=== PATIENT | male | born 1960 | race Caucasian/White ===

== ENCOUNTER 2017-12-13 17:30 | Emergency (ER) | payer OTHER ==
[~2017-12-13] VITALS: Wt 68.0 kg
[~2017-12-13 17:30] MED LIST: AUGMENTIN 875 M1 TAB PO; KEFLEX500 MG PO; MEDROL DOSEPAK4 MG PO; PERCOCET 325 MG1 TA2 PO; PREDNISONE10 MG PO; Percocet 325 MG1 TAB PO; VICODIN 5/500 505 MG PO
[2017-12-13 17:33] VITALS: BP 108/73
[2017-12-13] MEDS ORDERED: CEFADROXIL500 M1 PO (18:15)
[2017-12-13] MEDS ORDERED: PERCOCET 5-3251 EACH PO (18:15)
== END 2017-12-13 19:16 | disposition home or self-care (01) ==
LOC: ED 17:30
DX: S62.633B Displaced fracture of distal phalanx of left middle finger, initial encounter for open fracture (principal); Z88.1 Allergy status to other antibiotic agents; W23.0XXA Caught, crushed, jammed, or pinched between moving objects, initial encounter; Y93.89 Activity, other specified; Y92.89 Other specified places as the place of occurrence of the external cause; Y99.8 Other external cause status

== ENCOUNTER → 2018-01-21 | Outpatient (CLI) | payer OTHER ==
[~2018-01-21] MED LIST changes: +CEFADROXIL500 M1 PO; +PERCOCET 5-3251 EACH PO
== END | disposition home or self-care (01) ==
LOC: ORTHO 03:28 → RAD 08:00 → ORTHO 16:51
DX: Z47.89 Encounter for other orthopedic aftercare (principal); S62.633D Displaced fracture of distal phalanx of left middle finger, subsequent encounter for fracture with routine healing; M79.89 Other specified soft tissue disorders; X58.XXXD Exposure to other specified factors, subsequent encounter

== ENCOUNTER 2022-06-21 17:44 | Inpatient (IN) | payer OTHER ==
[~2022-06-21] VITALS: Ht 172.7 cm; Wt 63.1 kg
[2022-06-21 17:48] VITALS: BP 151/87
[2022-06-21 18:20] LABS: HEMATOCRIT 38.2 % (42.0-52.0); MEAN CORPUSCULAR HGB 29.1 pg (27.0-31.0); MEAN CORPUSCULAR HGB CONC 32.7 g/dl (33.0-37.0); MEAN PLATELET VOLUME 10.5 fl (9.6-12.3); PLATELET COUNT AUTOMATED 316 10*3/uL (130-400); RED BLOOD COUNT 4.29 10*6/uL (4.50-5.90)
[2022-06-21 18:22] LABS: MANUAL DIFF REFLEX YES
[2022-06-21 18:40] LABS: ALKALINE PHOSPHATASE 85 U/L (46-116); BUN 15 mg/dl (9-23); CHLORIDE 102 mmol/L (98-107); CREATININE 1.03 mg/dL (0.70-1.30); POTASSIUM 3.8 mmol/L (3.4-5.1); SGPT/ALT 14 U/L (10-49); SODIUM 134 mmol/L (136-145); TOTAL PROTEIN 6.2 gm/dL (6.0-8.0)
[2022-06-21 18:53] LABS: ATYPICAL LYMPHS 1 % (0-0); PLATELET SUFFICIENCY NORMAL (NORMAL); TOTAL CELLS COUNTED 100 #CELLS
[2022-06-21 21:08] VITALS: BP 132/70
[2022-06-21 21:33] VITALS: BP 139/68
[2022-06-22] VITALS (7 sets, daily range): BP systolic 132–155; BP diastolic 42–108
[2022-06-22] MEDS ORDERED: PRAVASTATIN SOD10 MG PO (06:37)
[2022-06-22] MEDS ORDERED: METOPROLOL SUCC25 M2 PO (06:38)
[2022-06-22] MEDS ORDERED: CITALOPRAM40 MG PO (06:38)
[2022-06-22] MEDS ORDERED: CLOPIDOGREL75 MG PO (06:38)
[2022-06-22] MEDS ORDERED: ARIPIPRAZOLE10 MG PO (06:39)
[2022-06-22] MEDS ORDERED: TRAMADOL HCL50 MG PO (06:39)
[2022-06-22] MEDS ORDERED: CARISOPRODOL350 M1 PO (06:44)
[2022-06-22 07:13] LABS: HEMATOCRIT 39.6 % (42.0-52.0); MEAN CELL VOLUME 91.7 fl (80.0-94.0); MEAN CORPUSCULAR HGB 29.2 pg (27.0-31.0); MEAN CORPUSCULAR HGB CONC 31.8 g/dl (33.0-37.0); MEAN PLATELET VOLUME 10.4 fl (9.6-12.3); PLATELET COUNT AUTOMATED 346 10*3/uL (130-400); RED BLOOD COUNT 4.32 10*6/uL (4.50-5.90); RED CELL DISTRI WIDTH 15.3 % (0-14.5); WHITE BLOOD COUNT 16.7 10*3/uL (4.8-10.8)
[2022-06-22 07:24] LABS: MANUAL DIFF REFLEX YES
[2022-06-22 07:33] LABS: ALKALINE PHOSPHATASE 80 U/L (46-116); BUN 13 mg/dl (9-23); CHLORIDE 103 mmol/L (98-107); CHOLESTEROL 99 mg/dL (<200); CREATININE 0.87 mg/dL (0.70-1.30); LDL CHOLESTEROL 49 mg/dL (9-159); POTASSIUM 4.1 mmol/L (3.4-5.1); SGPT/ALT 12 U/L (10-49); SODIUM 136 mmol/L (136-145); TOTAL PROTEIN 6.5 gm/dL (6.0-8.0); TRIGLYCERIDES 86 mg/dl (<150)
[2022-06-22 07:45] LABS: PLATELET SUFFICIENCY NORMAL (NORMAL); TOTAL CELLS COUNTED 100 #CELLS
[2022-06-22 08:21] LABS: VITAMIN D, 25-HYDROXY 9.6 ng/mL (30-100)
[2022-06-22] MEDS ORDERED: ZOSYN 4.54.5 GM/100 IV (13:17)
[2022-06-22] MEDS ORDERED: CLINDAMYCI900 MG/51 IV (13:17)
[2022-06-23] VITALS: BP 144/70
[2022-06-23 06:18] LABS: BUN 13 mg/dl (9-23); CHLORIDE 102 mmol/L (98-107); CREATININE 0.81 mg/dL (0.70-1.30); POTASSIUM 3.7 mmol/L (3.4-5.1); SODIUM 132 mmol/L (136-145)
[2022-06-23 06:27] LABS: HEMATOCRIT 32.7 % (42.0-52.0); MEAN CELL VOLUME 89.8 fl (80.0-94.0); MEAN CORPUSCULAR HGB 29.4 pg (27.0-31.0); MEAN CORPUSCULAR HGB CONC 32.7 g/dl (33.0-37.0); MEAN PLATELET VOLUME 10.6 fl (9.6-12.3); PLATELET COUNT AUTOMATED 343 10*3/uL (130-400); RED BLOOD COUNT 3.64 10*6/uL (4.50-5.90); RED CELL DISTRI WIDTH 15.2 % (0-14.5); WHITE BLOOD COUNT 15.4 10*3/uL (4.8-10.8)
[2022-06-23 06:29] LABS: MANUAL DIFF REFLEX YES
[2022-06-23 06:59] LABS: ATYPICAL LYMPHS 2 % (0-0); BURR CELLS FEW; PLATELET SUFFICIENCY NORMAL (NORMAL); POLYCHROMASIA SLIGHT; TOTAL CELLS COUNTED 100 #CELLS; TOXIC GRANULATION SLIGHT
[2022-06-23 07:00] LABS: TARGET CELLS FEW
[2022-06-23 08:00] VITALS: BP 154/86
[2022-06-23 12:00] VITALS: BP 156/72
[2022-06-23 13:05] LABS: ACID FAST SPEC PROCESSING Tissue Grinding (.)
[2022-06-23 13:06] LABS: ACID FAST SPEC PROCESSING Tissue Grinding (.)
[2022-06-23 16:00] VITALS: BP 137/93
[2022-06-23] MEDS ORDERED: CEFTRIAXONE2 G1 IV (18:03)
[2022-06-23] MEDS ORDERED: METRONIDAZOLE500 M1 PO (18:03)
[2022-06-23 20:00] VITALS: BP 126/88; BP 126/93
== END 2022-06-24 03:07 | disposition short-term general hospital (02) | DRG 853 ==
LOC: ED 17:44 → EDHOLD 20:47 → 5E 21:02
PROVIDERS: Internal Medicine; Podiatrist Foot & Ankle Surgery; Student in an Organized Health Care Education/Training Program; ADMIT Internal Medicine; ATTEND Internal Medicine
PROC: 0QBP0ZZ Excision of Left Metatarsal, Open Approach (ICD-10-PCS; principal; 2022-06-22)
PROC: 0QBP0ZX Excision of Left Metatarsal, Open Approach, Diagnostic (ICD-10-PCS; 2022-06-22)
DX: A41.9 Sepsis, unspecified organism (principal); A48.0 Gas gangrene; M72.6 Necrotizing fasciitis; E44.0 Moderate protein-calorie malnutrition; M86.8X7 Other osteomyelitis, ankle and foot; F17.210 Nicotine dependence, cigarettes, uncomplicated; I73.9 Peripheral vascular disease, unspecified; I10 Essential (primary) hypertension; E78.5 Hyperlipidemia, unspecified; D64.9 Anemia, unspecified; Z88.1 Allergy status to other antibiotic agents; Z82.49 Family history of ischemic heart disease and other diseases of the circulatory system; Z79.899 Other long term (current) drug therapy; Z89.422 Acquired absence of other left toe(s); Z68.21 Body mass index [BMI] 21.0-21.9, adult